=== PATIENT | female | born 1955 | race Two or more races ===

== ENCOUNTER 2020-01-01 08:32 | Inpatient (IN) | payer MEDICAID ==
[2019-12-23 11:51] LABS: BASOPHILS % (AUTO) 0.5 % (0.0-2.0); EOSINOPHILS % (AUTO) 0.8 % (0.0-3.0); HEMATOCRIT 41.2 % (37.0-47.0); HEMOGLOBIN 14.1 G/DL (12.0-16.0); LYMPHOCYTES % (AUTO) 26.3 % (20.0-45.0); MEAN CORPUSCULAR VOLUME 91 FL (80-99); MONOCYTES % (AUTO) 7.3 % (1.0-10.0); NEUTROPHILS % (AUTO) 65.2 % (45.0-75.0); PLATELET COUNT 254 K/UL (150-450); RED BLOOD COUNT 4.53 M/UL (4.20-5.40); RED CELL DISTRIBUTION WIDTH 11.4 % (11.6-14.8); WHITE BLOOD COUNT 9.2 K/UL (4.8-10.8)
[2019-12-23 12:00] LABS: INR 0.9 (0.9-1.1)
[2019-12-23 12:05] LABS: ANION GAP 7 mmol/L (5-15); BLOOD UREA NITROGEN 10 mg/dL (7-18); CALCIUM 9.1 MG/DL (8.5-10.1); CARBON DIOXIDE 28 MMOL/L (21-32); CHLORIDE 105 MMOL/L (98-107); CREATININE 0.8 MG/DL (0.55-1.30); POTASSIUM 3.8 MMOL/L (3.5-5.1); SODIUM 140 MMOL/L (136-145)
[2019-12-23 12:23] LABS: APPEARANCE,URINE CLEAR; BILIRUBIN, URINE NEGATIVE (NEGATIVE); COLOR,URINE PALE YELLOW; GLUCOSE, URINE (UA) NEGATIVE (NEGATIVE); KETONES,URINE 1+ (NEGATIVE); LEUKOCYTE ESTERASE ,URINE 3+ (NEGATIVE); NITRITE,URINE NEGATIVE (NEGATIVE); PH,URINE 7 (4.5-8.0); PROTEIN,URINE NEGATIVE (NEGATIVE); UROBILINOGEN,URINE NORMAL MG/DL (0.0-1.0)
--- NOTE | 2019-12-23 16:43 | Diagnostic Imaging Report ---
Indication: Cough Technique: 2 views of the chest Comparison: None Findings: Lungs and pleural spaces are clear. The heart size is normal. The bones are unremarkable except for degenerative spondylosis changes. No significant interim change. Impression: Negative
[~2020-01-01] VITALS: Ht 157.5 cm; Wt 73.5 kg
[2020-01-01] VITALS (12 sets, daily range): BP systolic 115–154; BP diastolic 57–86
[~2020-01-01 08:32] MED LIST: AMITRIPTYLINE100 MG ORAL; ATORVASTATIN CA40 MG ORAL; HYDROCHLOROTH12.5 MG ORAL; LISINOPRIL40 MG ORAL; METFORMIN HCL500 M1 ORAL
[2020-01-01] MEDS ORDERED: Propofol 200mg/20ml IV ONE (10:15)
[2020-01-01] MEDS ORDERED: fentaNYL 100 mcg/2 mL IV ONE (10:15)
[2020-01-01] MEDS ORDERED: Lidocaine 1% MPF 10mg/ml 5ml ONE (10:15)
[2020-01-01] MEDS ORDERED: Midazolam 2mg/2ml Inj ONE (10:15)
[2020-01-01] MEDS ORDERED: Ketorolac 30mg Inj ONE (10:16)
[2020-01-01] MEDS ORDERED: Bupivacaine w/Epi 0.5% 30ml Vial INJ ONE (10:33)
[2020-01-01] MEDS ORDERED: LR 1000ml 1,000 ML IVLG SCH (10:56)
--- NOTE | 2020-01-01 10:56 | Anethesia Preoperative Eval ---
Anesthesia Pre-op PMH/ROS General Date of Evaluation: Jan 01, 2020 Time of Evaluation: 10:52 Anesthesiologist: Mani ASA Score: ASA 3 Mallampati Score Class I : Soft palate, uvula, fauces, pillars visible Class II: Soft palate, uvula, fauces visible Class III: Soft palate, base of uvula visible Class IV: Only hard plate visible Mallampati Classification: Class II Surgeon: Ced Diagnosis: R breast CA Surgical Procedure: R partial mastectomy Anesthesia History: none Family History: no anesthesia problems Allergies: Coded Allergies: No Known Allergies (Unverified , 01/01/20) Medications: see eMAR Patient NPO?: Yes NPO Date: Dec 31, 2019 NPO Time: 1999 Past Medical History Cardiovascular: Reports: HTN - stable on pills; Denies: CAD, VA, valve dz, arrhythmia, other Pulmonary: Denies: asthma, COPD, YESICA, other Gastrointestinal/Genitourinary: Reports: GERD; Denies: CRI, ESRD, other Neurologic/Psychiatric: Reports: depression/anxiety; Denies: dementia, CVA, TIA, other Endocrine: Reports: DM - on metformin; Denies: hypothyroidism, steroids, other HEENT: Denies: cataract (L), cataract (R), glaucoma, TE-MOAK (L), TE-MOAK (R), other Hematology/Immune: Denies: anemia, DVT, bleeding disorder, other Musculoskeletal/Integumentary: Denies: OA, RA, DJD, DDD, edema, other Other: other - overweight PMH Narrative: as above PSxH Narrative: R breast, partial thyroidectomy Anesthesia Pre-op Phys. Exam Physician Exam Last Vital Signs Date Time Temp Pulse Resp B/P (MAP) Pulse Ox O2 Delivery O2 Flow Rate FiO2 01/01/20 09:32 Room Air 01/01/20 09:28 97.5 75 18 154/86 (108) 98 Constitutional: NAD Neurologic: CN 2-12 intact Cardiovascular: RRR, no M/R/G Respiratory: CTA Gastrointestinal: S/NT/ND Airway Exam Mallampati Score: Class II MO: full Neck: flexible ROM: full Teeth: missing Dentures: no upper, no lower Anesthesia Pre-op A/P Labs see chart Studies Pre-op Studies: EKG - NSR, CXR - WNL Risk Assessment & Plan Assessment: ASA 3 Plan: GA with LMA Status Change Before Surgery: No Pre-Antibiotics Drug: Ancef 1gr Given Within 1 Hr of Incision: Yes Time Given: 11:32 Franco Singleton MD Jan 01, 2020 10:56
--- NOTE | 2020-01-01 10:58 | Pre-Procedure Note/Attestation ---
Pre-Procedure Note/Attestation Complete Prior to Procedure Planned Procedure: right Procedure Narrative: right breast partial mastectomy with pre-op needle localization and right axillary lymph node biopsy Indications for Procedure Pre-Operative Diagnosis: invasive ductal carcinoma right breast Attestation I attest that I discussed the nature of the procedure; its benefits; risks and complications; and alternatives (and the risks and benefits of such alternatives ), prior to the procedure, with the patient (or the patient's legal community engagement representative). I attest that, if there was a reasonable possibility of needing a blood transfusion, the patient (or the patient's legal community engagement representative) was given the [facility] standardized written summary, pursuant to the Alberto Castine Blood Safety Act ([place] Health and Safety Code # 1645, as amended). I attest that I re-evaluated the patient just prior to the surgery and that there has been no change in the patient's H&P, except as documented below: none Galen Coughlin MD Jan 01, 2020 10:58
[2020-01-01] MEDS ORDERED: Ketorolac 30mg Inj IV PRN (11:00)
[2020-01-01] MEDS ORDERED: Metoclopramide 10mg/2ml Inj IVP PRN (11:00)
[2020-01-01] MEDS ORDERED: Hydromorphone 0.5mg/0.5ml inj IVP PRN (11:00)
[2020-01-01] MEDS ORDERED: LR 1000ml ONE (11:00)
[2020-01-01] MEDS ORDERED: Sterile Water Irrig 1000ml IRRIG ONE ×2 (11:00→11:58)
[2020-01-01] MEDS ORDERED: NS Irrig 1000ml ONE (11:00)
[2020-01-01] MEDS ORDERED: DiphenhydrAMINE 50mg/ml Inj IVP PRN (11:00)
[2020-01-01] MEDS ORDERED: Sodium Chloride 10ml vial INJ ONE (11:47)
[2020-01-01] MEDS ORDERED: ePHEDrine 50mg/ml Inj ONE (11:47)
[2020-01-01] MEDS ORDERED: Morphine Sulfate 10mg/ml Inj ONE (11:49)
[2020-01-01] MEDS ORDERED: Bacitracin Oint 15gm Tube TOPIC ONE (11:53)
[2020-01-01] MEDS ORDERED: Bacitracin 50000 Units Vial ONE (11:54)
[2020-01-01] MEDS ORDERED: NeoSporin Gu Irrig 1ml Amp IRRIG ONE (11:54)
--- NOTE | 2020-01-01 12:50 | Brief Operative Note ---
Immediate Post Operative Note Operative Note Pre-op Diagnosis: invasive ductal carcinoma right breast Procedure: right breast partial mastectomy with pre-op needle localization and right axillary lymph node biopsy Post-op Diagnosis: same Post-op Diagnosis: same as pre-op Findings: consistent w/pre-op dx studies Surgeon: enoch Anesthesiologist: nicole Anesthesia: general Specimen: yes - right breast cancer, right axillary lymph nodes Complications: none Condition: stable Fluids: see anesthesia record Estimated Blood Loss: minimal Drains: LYLE Implant(s) used?: No Galen Coughlin MD Jan 01, 2020 12:50
--- NOTE | 2020-01-01 12:59 | Immediate Post-Op Evaluation ---
Immediate Post-Op Evalulation Immediate Post-Op Evalulation Procedure: R partial mastectomy with axillary l/n dissection Date of Evaluation: Jan 01, 2020 Time of Evaluation: 12:58 IV Fluids: 1200 Blood Products: none Estimated Blood Loss: 50 Urinary Output: none Blood Pressure Systolic: 133 Blood Pressure Diastolic: 58 Pulse Rate: 72 Respiratory Rate: 20 O2 Sat by Pulse Oximetry: 99 Temperature (Fahrenheit): 97.6 Pain Score (1-10): 2 Nausea: No Vomiting: No Complications none Patient Status: reacts, patent, none Hydration Status: adequate Franco Singleton MD Jan 01, 2020 12:59
[2020-01-01] MEDS ORDERED: HYDROcodone/Acetamin 5/325 tab ORAL PRN (13:00)
[2020-01-01] MEDS ORDERED: DiphenhydrAMINE 25mg Tab ORAL PRN (13:00)
[2020-01-01] MEDS ORDERED: HYDROmorphone 1mg/ml Carpuject SUBQ PRN (13:00)
--- NOTE | 2020-01-01 13:45 | Pre-op HX & Phy Repo 2 SIG ---
DATE OF ADMISSION: 01/01/2020 SCHEDULED FOR SURGERY: January 01, 2020. HISTORY OF PRESENT ILLNESS: The patient is a 64-year-old female in overall stable health with invasive ductal carcinoma of the right breast. The patient is scheduled to undergo right breast partial mastectomy with preoperative needle localization and right axillary lymph node biopsy. The patient was seen in early 2018 and underwent excision of two mammographic abnormalities in the right breast at 12 o'clock on February 28, 2019 with pathology revealing one fibroadenoma and one intraductal papilloma with no evidence of malignancy. The patient then underwent mammogram and ultrasound in October 2019 revealing two adjacent lesions at 11 o'clock 8 cm from the nipple, one measuring 14 millimeters, one measuring 5 millimeters. Core biopsy of both these lesions in the upper outer quadrant of the right breast revealed invasive ductal carcinoma. There is no palpable mass. The lesion is estrogen receptor, progesterone receptor, and HER2 negative. Ki-67 35%. Metastatic workup has been negative. She was seen by Oncology who recommended proceeding with surgery at this time. PAST MEDICAL HISTORY: MEDICATIONS: Lisinopril, hydrochlorothiazide, metformin. ALLERGIES: None. OPERATIONS: Total abdominal hysterectomy 2008, right breast biopsy February 28, 2019 REVIEW OF SYSTEMS: 5, para 5. PHYSICAL EXAMINATION: GENERAL: The patient is 5 feet and 2 inches, approximately 160 pounds. VITAL SIGNS: Stable. Slightly elevated systolic blood pressure. HEENT: Within normal limits. LUNGS: Clear. HEART: Regular rhythm. BREASTS: Large and ptotic. There is a healed circumareolar incision in the upper right breast. There is no palpable mass in either breast. No axillary or supraclavicular lymphadenopathy. ABDOMEN: Soft. PELVIC: Per primary care. RECTAL: Per primary care. EXTREMITIES: Without edema. NEUROLOGIC: Physiologic. IMPRESSION: 1. Invasive ductal carcinoma, right breast, two adjacent lesions upper outer quadrant. 2. Hypertension. 3. Diabetes. PLAN: I have had a full discussion with the patient regarding the nature of her condition, the nature of the surgery, indications, alternatives, options, and risks including bleeding, infection, scarring, distortion of the breast and nipple, need for additional surgery or treatments based on final pathology, need for radiation to the breast etc. All questions have been answered. I discussed the risks of neuritis and neuralgia as well. She understands and agrees to proceed. PLANNED SURGERY: Right breast partial mastectomy with preoperative needle localization and right axillary lymph node biopsy. Galen Coughlin M.D. DR: Gabby JOB#: [id number] CC:
--- NOTE | 2020-01-01 14:09 | NUR ---
NURSE NOTES: Patient arrived on unit via hospital bed. Stable. Denies pain or SOB. Patient is awake and able to verbalize needs. Family is at bedside. Surgical dressing c/d/i, surgical bra in place. Patient is on 3L oxygen via NC, breathing is even and unlabored. Patient is able to move extremities, no sensory impairment noted. VSS.. Patient's belongings with family. Patient oriented to room, call light, and unit. Patient instructed to use call light for assistance, verbalized understanding. All needs met at this time. patient is in bed in locked and lowest position with call light within reach. All safety measures provided. Will continue to monitor.
[2020-01-01] MEDS ORDERED: D5 1/2NS w/KCl 20mEq 1,000 ML IV SCH (16:00)
--- NOTE | 2020-01-01 16:45 | Operative Note - Dictated ---
DATE OF OPERATION: 01/01/2020 SURGEON: Galen Coughlin M.D. VISUAL SPECIALIST: None. ANESTHESIOLOGIST: Dr. Franco Singleton. TYPE OF ANESTHESIA: General. PREOPERATIVE DIAGNOSES: 1. Invasive ductal carcinoma, right breast upper outer quadrant. 2. Adjacent lesions. POSTOPERATIVE DIAGNOSES: 1. Invasive ductal carcinoma, right breast upper outer quadrant. 2. Adjacent lesions. OPERATION PERFORMED: Right breast partial mastectomy with preoperative needle localization x2 and right axillary lymph node biopsy. DESCRIPTION OF PROCEDURE: The patient was taken to the operating room and under general anesthesia with sequential compression device stockings in place, she was prepped and draped in usual fashion. A curvilinear upper outer quadrant right breast incision was made achieving hemostasis with cautery and dissecting flaps circumferentially. Both wires were brought into the field. The appropriate sector of breast tissue was excised with a wide excision of the lesions. Inspection by the pathologist revealed that it was somewhat close to the superior and lateral margins and anterior and additional tissue was taken in all these areas. The field was irrigated and hemostasis carefully achieved with cautery. Incision was closed with interrupted 3-0 Vicryl deep dermal subcutaneous sutures followed by continuous 4-0 Monocryl subcuticular suture. A right axillary incision was made achieving hemostasis with cautery and the clavipectoral fascia incised. There were two clearly slightly enlarged lymph nodes in the lower level resection. Dissection was performed using the Thunderbeat electrosurgical device. Tissue was given to the pathologist confirming presence of nodes. Through a separate stab incision inferiorly, a large flat Guero-Dyer drain was placed into the axilla and sutured to the skin with 2-0 nylon skin suture. The field was copiously irrigated and hemostasis carefully achieved with cautery. The clavipectoral fascia was closed with interrupted 3-0 Vicryl. Subcutaneous tissues closed with interrupted 3-0 Vicryl and skin closed with continuous 4-0 Monocryl subcuticular suture. Mastisol and half-inch Steri-Strips were applied to both incisions followed by dry sterile dressing. Final sponge and needle counts were correct. The patient tolerated the procedure well and left the operating room in good condition. Don Schiller, M.D. DR: JHON JOB#: [id number] CC:
[2020-01-01] MEDS: metFORMIN 500mg tab ORAL SCH (17:16)
--- NOTE | 2020-01-01 17:30 | NUR ---
NURSE NOTES: Patient c/o nausea and does not want to eat food at this time. Patient's dinner tray held. Zofran administered as ordered. Fluids encouraged as tolerated. IVF running as ordered. Patient states she feels relieved after zofran administration.
--- NOTE | 2020-01-01 19:30 | NUR ---
HAND-OFF: Report given to Luiza SOW. Patient is stable.
--- NOTE | 2020-01-01 19:31 | NUR ---
NURSE NOTES: Received report & pt from MAGI Kahn. Pt lying in bed, a&ox4, Icelandic speaking only, in room air, family members at bedside. No s/s of acute distress & no c/o pain. LYLE intact & to bulb suction. Surgical drsg C/D/I. IV site intact with IVF running as ordered. Bed in lowest position, call light within reach. Will continue to monitor.
[2020-01-01] MEDS ORDERED: 1/2NS w/KCl 20mEq 1000ml 1,000 ML IV SCH (20:00)
[2020-01-01] MEDS: ceFAZolin sod 1 GM in D5W 55 ML IV SCH (20:07)
[2020-01-01] MEDS ORDERED: Atorvastatin 80mg tab ORAL SCH (21:00)
[2020-01-02] VITALS: BP 112/56
[2020-01-02 04:00] VITALS: BP 123/66
[2020-01-02] MEDS: ceFAZolin sod 1 GM in D5W 55 ML IV SCH (04:22)
--- NOTE | 2020-01-02 04:31 | NUR ---
NURSE NOTES: Pt complaining of 4/10 pain. Offered [place] but pt states she did not want to take [place]. Tylenol 650mg PO given for pain. LYLE drain teaching done with pt & daughter at bedside.
--- NOTE | 2020-01-02 07:25 | NUR ---
HAND-OFF: Report given to MAGI Kahn. Pt in stable condition.
--- NOTE | 2020-01-02 07:30 | NUR ---
NURSE NOTES: Patient is in bed awake and able to verbalize needs. Stable. Denies pain or SOB. SUrgical dressing c/d/i. SUrgical bra in place. Patient's daughter is at bedside. Patient teaching given to both patient and patient's daughter regarding LYLE drain monitoring. Patient verbalized understanding. Patient is in bed in locked and lowest position with call light within reach. All needs met at this time. WIll continue to monitor.
[2020-01-02 08:00] VITALS: BP 123/65
--- NOTE | 2020-01-02 08:24 | NUR ---
NURSE NOTES: Patient tolerating food and PO liquids. No c/o vomiting or nausea. No c/o abdominal pain.
[2020-01-02] MEDS: metFORMIN 500mg tab ORAL SCH (08:27)
[2020-01-02 08:28] VITALS: BP 123/65
[2020-01-02] MEDS ORDERED: Lisinopril 20mg tab ORAL SCH (09:00)
[2020-01-02] MEDS ORDERED: hydroCHLOROthiazide 12.5mg TAB ORAL SCH (09:00)
--- NOTE | 2020-01-02 09:10 | NUR ---
CASE MANAGEMENT: INITIAL REVIEW 64 YR OLD FEMALE HERE FOR ELECTIVE SURGERY CC:RIGHT BREAST CANCER SI:INVASIVE DUCTAL CARCINOMA RIGHT BREAST 97.5 75 18 154/86 98% ON RA IS:RIGHT PARTIAL MASTECTOMY AND RIGHT AXILLARY LYMPH NODE BIOPSY IN SURGERY NOW IV CEFAZOLIN Q8HR IVF NS @75ML/HR IV D5@75ML/HR \: 3E MED SURG UNIT CASE MANAGEMENT: REVIEW 01/02/2020 SI:INVASIVE DUCTAL CARCINOMA RIGHT BREAST 99.5 73 18 123/65 95% ON RA IS:LISINOPRIL PO QD HYDRODIURIL PO QD METFORMIN PO BID \: 3E MED SURG UNIT PLAN: POSS DC
--- NOTE | 2020-01-02 09:28 | General Progress Note ---
Progress Note Progress Note AVSS Did not require analgesics overnight after PACU Right breast and axilla incisions clean with intact steristrips LYLE 10cc serosang overnight Imp: stable Plan: discharge with LYLE drain Instructions/limitations/supplies discussed/provided F/U office 01/06 Rx - none Galen Coughlin MD Jan 02, 2020 09:28
--- NOTE | 2020-01-02 10:33 | 48 Hour Post Anesthesia Eval ---
Post Anesthesia Evaluation Procedure: R partial mastectomy with axillary l/n dissection Date of Evaluation: Jan 02, 2020 Airway: patent Nausea: No Vomiting: No Hydration Status: adequate Cardiopulmonary Status: at baseline Mental Status/LOC: patient returned to baseline Post-Anesthesia Complications: 0 Follow-up care needed: N/A - further care as per primary team Ivonne Stephen MD Jan 02, 2020 10:33
[2020-01-02] MEDS ORDERED: Tubing IV Secondary IV ONE (10:39)
--- NOTE | 2020-01-02 10:44 | NUR ---
NURSE NOTES: Patient discharged home as ordered. Stable. Denies pain or SOB. Patient assisted by family members. Patient and patient's family were given thorough discharge instructions by RN and Dr. Coughlin prior to discharge. Patient and patient's family verbalized understanding. Patient has written instructions. Patient's surgical dressing changed by surgeon prior to discharge. Dressing supplies provided for patient. All concerns addressed by RN and Dr. Coughlin prior to discharge. Patient has all belongings. Skin is c/d/i. IV removed. Patient assisted into private vehicle by staff without incident.
--- NOTE | 2020-01-04 09:02 | Discharge Summary ---
Discharge Summary Discharge Summary _ DATE OF ADMISSION: 01/01/2020 DATE OF DISCHARGE: 01/02/2020 DISCHARGED BY: Dr. Galen Coughlin HISTORY OF PRESENT ILLNESS: The patient is a 64-year-old female in overall stable health with invasive ductal carcinoma of the right breast. The patient was seen in early 2018 and underwent excision of two mammographic abnormalities in the right breast at 12 o'clock on February 28, 2019 with pathology revealing one fibroadenoma and one intraductal papilloma with no evidence of malignancy. The patient then underwent mammogram and ultrasound in October 2019 revealing two adjacent lesions at 11 o'clock 8 cm from the nipple, one measuring 14 millimeters, one measuring 5 millimeters. Core biopsy of both these lesions in the upper outer quadrant of the right breast revealed invasive ductal carcinoma. There is no palpable mass. The lesion is estrogen receptor, progesterone receptor, and HER2 negative. Ki-67 35%. Metastatic workup has been negative. She was seen by Oncology who recommended proceeding with surgery at this time. BRIEF HOSPITAL COURSE: The patient was admitted and underwent right breast partial mastectomy with preoperative needle localization x2 and right axillary lymph node biopsy. The patient tolerated procedure well and left the operating room in good condition. Postoperatively, she was admitted for post postop care. She was given pain management. Diet was advanced. She was instructed on how to care for the LYLE drain. She was continued on home medications Metformin, lisinopril, hydrochlorothiazide and Lipitor. Patient did not require analgesics after surgery. Right breast and axilla incisions were clean with intact Steri-Strips. LYLE drain 10 cc of serosanguineous drainage. Patient was stable for discharge. Advised to follow- up on 01/06. FINAL DIAGNOSES: 1. Invasive ductal carcinoma, right breast upper outer quadrant. 2. Adjacent lesions. OPERATION PERFORMED: Right breast partial mastectomy with preoperative needle localization x2 and right axillary lymph node biopsy. DISPOSITION: Patient was discharged home. DISCHARGE MEDICATIONS: Refer to Discharge Medication List. DISCHARGE INSTRUCTIONS: Follow-up on 01/06/20. I have been assigned to complete a discharge summary on this account, I was not involved with the patient's management.--JENNIFER Levi Jacqueline Robles NP Jan 04, 2020 09:02
== END 2020-01-02 10:40 | disposition home or self-care (01) | DRG 581 ==
LOC: SDS 08:32 → EDSTATUS 12:00 → 3E 15:47
PROC: 0HBT0ZZ Excision of Right Breast, Open Approach (ICD-10-PCS; principal; 2020-01-01 11:00)
PROC: 07B50ZX Excision of Right Axillary Lymphatic, Open Approach, Diagnostic (ICD-10-PCS; principal; 2020-01-01 11:00)
DX: C50.411 Malignant neoplasm of upper-outer quadrant of right female breast (principal); Z17.1 Estrogen receptor negative status [ER-]; E11.9 Type 2 diabetes mellitus without complications; I10 Essential (primary) hypertension; Z79.84 Long term (current) use of oral hypoglycemic drugs
CPT/HCPCS: 36415; 71046; 80048; 81001; 82962; 85025; 85610; 85730; 93005; 94003; 94150; J2250; J2405